=== PATIENT | female | born 1970 | race Caucasian/White ===

== ENCOUNTER 2020-02-28 10:38 | Outpatient (REF) | payer OTHER, SELFPAY | END 2020-02-28 10:39 | disposition home or self-care (01) | LOC: HO.LAB 10:38 | PROVIDERS: Visit Provider Internal Medicine | DX: Z20.828 Contact with and (suspected) exposure to other viral communicable diseases (principal) | CPT/HCPCS: C9803; U0003 ==

== ENCOUNTER 2020-06-10 16:34 | Outpatient (REF) | payer OTHER, SELFPAY ==
--- NOTE | ~2020-06-10 | MM_ITS ---
EXAMINATION: MM SCREENING DIGITAL BREAST TOMOSYNTHESIS, BILATERAL CLINICAL INFORMATION: Screening. Asymptomatic. The lifetime risk of breast cancer based on the Tyrer-Cuzick Model is 8%. COMPARISON: Mammography: 06/08/2019, 06/02/2018, 12/25/2016 TECHNIQUE: Digital breast tomosynthesis is performed in both the craniocaudal and mediolateral oblique views along with computer-aided detection (CAD). Synthesized 2D images are generated from the tomosynthesis. FINDINGS: There are scattered areas of fibroglandular density (ACR BI-RADS breast composition Category b). There are no significant masses, abnormal calcifications, or other abnormalities. The axilla and skin contours are unremarkable. MM/MM tomosynthesis screening BI IMPRESSION: No mammographic evidence of malignancy. ASSESSMENT: BI-RADS 1: Negative RECOMMENDATION: Routine annual mammography screening. This patient's information was entered into a reminder system with a target due date for their next mammogram.
== END 2020-06-10 16:35 | disposition home or self-care (01) ==
LOC: HO.MAMMO 16:34
PROVIDERS: Visit Provider Internal Medicine
DX: Z12.31 Encounter for screening mammogram for malignant neoplasm of breast (principal)
CPT/HCPCS: 77063; 77067

== ENCOUNTER 2020-08-13 07:25 | Outpatient (REF) | payer OTHER, SELFPAY ==
[2020-08-13 08:41] LABS: Basophils Percent Auto 0.6 % (0-2); Hemoglobin 13.3 g/dl (12.0-16.0); Imm Gran Abs Auto 0.02 X10*3/uL (0.00-0.03); Imm Gran Pct Auto 0.3 % (0.0-0.4); Lymphocytes Absolute Auto 2.2 X10*3/uL (1.2-4.9); MANUAL DIFF FLAG SCAN; Mean Corpuscular Hemoglobin 30.4 pg (27.0-33.0); PLT CLUMP 1; Red Cell Distribution Width 12.2 % (11.0-16.0); SCAN SMEAR FLAG 1
[2020-08-13 08:43] LABS: Hematocrit 41.4 % (37-47); Lymphocytes Percent Auto 30.8 % (20-40); Mean Corpuscular HGB Conc 32.1 g/dl (31.0-35.0); Mean Corpuscular Volume 94.7 fL (80-98); Monocytes Absolute Auto 0.5 X10*3/uL (0.1-1.2); Monocytes Percent Auto 6.9 % (2-11); Neutrophils Absolute Auto 4.3 X10*3/uL (2.0-8.3); Neutrophils Percent Auto 61.4 % (45-73); Red Blood Count 4.37 X10*6/uL (4.20-5.50)
[2020-08-13 09:03] LABS: Alanine Aminotransferase 51 U/L (0-31); Albumin Level 4.3 g/dL (3.5-5.0); Alkaline Phosphatase 90 U/L (39-117); Anion Gap 13 (12-20); Aspartate Amino Transferase 26 U/L (5-31); Bilirubin Total 0.7 mg/dL (0.0-1.0); Blood Urea Nitrogen 17 mg/dL (9-16); Calcium 9.5 mg/dL (8.4-10.2); Carbon Dioxide 27 mmol/L (22-29); Chloride 106 mmol/L (96-108); Cholesterol 168 mg/dL; Estimated Glomerular Filt Rate > 60; Glucose Random 100 mg/dL (60-115); HDL Cholesterol 72 mg/dL; LDL Cholesterol Calculated 86 mg/dl; Potassium 4.5 mmol/L (3.3-5.1); Sodium 141 mmol/L (135-145); Triglycerides 53 mg/dL
[2020-08-13 09:09] LABS: SLIDE REVIEW VERIFIED
== END 2020-08-13 07:26 | disposition home or self-care (01) ==
LOC: HO.LAB 07:25
PROVIDERS: PCP Internal Medicine; Visit Provider Internal Medicine
DX: Z00.00 Encounter for general adult medical examination without abnormal findings (principal); N95.0 Postmenopausal bleeding; D50.9 Iron deficiency anemia, unspecified
CPT/HCPCS: 36415; 80053; 80061; 85025

== ENCOUNTER 2020-08-28 10:43 | Outpatient (REF) | payer OTHER, SELFPAY ==
--- NOTE | ~2020-08-28 | US_ITS ---
EXAMINATION: ULTRASOUND PELVIS COMPLETE CLINICAL INFORMATION: Postmenopausal bleeding. COMPARISON: None TECHNIQUE: Transabdominal and transvaginal imaging of pelvis is performed. FINDINGS: The uterus is anteverted measuring 14.2 cm in length, 5.7 cm in AP and 8.6 cm in transverse dimension. The endometrial thickness is 0.39 cm. There are multiple hypoechoic uterine lesions. 1. Lesion largest in the right upper body of uterus measures 5.2 x 4.7 x 5.4 cm. Previously it measured 3.6 x 3.0 x 3.3 cm. 2. Lesion in the left upper body of uterus measures 2.8 x 2.1 x 2.2 cm. Previously it measured 2.8 x 2.2 x 2.4 cm. 3. Lesion in the posterior fundus of the uterus measures 3.5 x 2.8 x 2.9 cm. Previously it measured 2.3 x 3.3 x 3.0 cm. There are small anechoic nabothian cysts seen in the cervix. The right ovary measures 1.8 x 0.9 x 1.5 cm and volume 1.2 mL. There is a dominant follicle measuring 1.2 x 0.9 x 1.3 cm. Previously it measured 2.1 x 1.2 x 1.6 cm and volume 2.0 mL. The left ovary measures 4.5 x 3.1 x 3.4 cm. There is a simple anechoic cyst measuring 3.5 x 2.7 x 2.6 cm. Previously left ovary measured 2.8 x 1.4 x 2.0 cm and volume 4.2 mL. US/US pelvic and transvaginal IMPRESSION: Bilateral dominant ovarian follicular cysts as measured above. At least 3 fibroids in the uterus. Small nabothian cysts in the cervix.
== END 2020-08-28 10:44 | disposition home or self-care (01) ==
LOC: HO.HMGCX 10:43
PROVIDERS: PCP Internal Medicine; Visit Provider Internal Medicine
DX: N95.0 Postmenopausal bleeding (principal)
CPT/HCPCS: 76830; 76856

== ENCOUNTER 2020-12-26 10:18 | Outpatient (REF) | payer OTHER, SELFPAY | END 2020-12-26 10:19 | disposition home or self-care (01) | LOC: HO.LAB 10:18 | PROVIDERS: PCP Internal Medicine; Visit Provider Internal Medicine | DX: Z20.822 Contact with and (suspected) exposure to COVID-19 (principal) | CPT/HCPCS: C9803; U0003; U0005 ==

== ENCOUNTER 2021-04-02 11:25 | Outpatient (REF) | payer OTHER, SELFPAY ==
[2021-04-02 13:54] LABS: COVID-19 Test Negative (Negative)
== END 2021-04-02 11:26 | disposition home or self-care (01) ==
LOC: HO.LAB 11:25
PROVIDERS: Visit Provider Internal Medicine
DX: Z20.822 Contact with and (suspected) exposure to COVID-19 (principal)
CPT/HCPCS: 36415; 87635

== ENCOUNTER 2021-05-21 09:05 | Outpatient (REF) | payer OTHER, SELFPAY ==
[2021-05-21 10:21] LABS: Alanine Aminotransferase 21 U/L (0-31); Albumin Level 4.3 g/dL (3.5-5.0); Alkaline Phosphatase 79 U/L (39-117); Anion Gap 9 (12-20); Aspartate Amino Transferase 21 U/L (5-31); Bilirubin Total 1.1 mg/dL (0.0-1.0); Blood Urea Nitrogen 21 mg/dL (9-16); Calcium 9.5 mg/dL (8.4-10.2); Carbon Dioxide 27 mmol/L (22-29); Chloride 106 mmol/L (96-108); Estimated Glomerular Filt Rate > 60; Glucose Random 94 mg/dL (60-115); Potassium 4.4 mmol/L (3.3-5.1); Sodium 138 mmol/L (135-145); Total Protein 7.1 g/dL (6.5-8.0)
[2021-05-21 10:42] LABS: HBS Num1 4.76 mIU/mL (0-7.99); HBc Num1 0.17 S/CO (0.00-0.79); Hepatitis A Antibody IgM 0.18 Index (0-0.79); Hepatitis B Core Antibody Nonreactive (Nonreactive); ~HepC Num1 0.31 S/CO (0.00-0.79); ~Hepatitis A Antibody IgM Nonreactive (Nonreactive); ~Hepatitis B Surface Antibody NONREACTIVE (Nonreactive); ~Hepatitis C Antibody Nonreactive (Nonreactive)
[2021-05-21 10:58] LABS: HBsAGNum1 0.23 S/CO (0.00-0.99); Hepatitis B Surface Antigen Negative (Negative)
== END 2021-05-21 09:06 | disposition home or self-care (01) ==
LOC: HO.LAB 09:05
PROVIDERS: PCP Internal Medicine; Visit Provider Internal Medicine
DX: D50.9 Iron deficiency anemia, unspecified (principal); N95.0 Postmenopausal bleeding; R74.01 Elevation of levels of liver transaminase levels
CPT/HCPCS: 36415; 80053; 86704; 86706; 86709; 86803; 87340

== ENCOUNTER 2021-07-03 08:48 | Outpatient (REF) | payer OTHER, SELFPAY ==
[2021-07-03 09:21] LABS: MANUAL DIFF FLAG NO
[2021-07-03 09:27] LABS: Basophils Percent Auto 0.5 % (0-2); Hemoglobin 12.8 g/dl (12.0-16.0); Imm Gran Abs Auto 0.01 X10*3/uL (0.00-0.03); Imm Gran Pct Auto 0.2 % (0.0-0.4); Lymphocytes Absolute Auto 1.6 X10*3/uL (1.2-4.9); Lymphocytes Percent Auto 24.3 % (20-40); Mean Corpuscular Hemoglobin 30.6 pg (27.0-33.0); Mean Corpuscular Volume 95.7 fL (80.0-98.0); Mean Platelet Volume 9.8 fL (9.4-12.3); Monocytes Absolute Auto 0.5 X10*3/uL (0.1-1.2); Monocytes Percent Auto 7.2 % (2-11); Neutrophils Absolute Auto 4.3 x10*3/uL (2.0-8.3); Neutrophils Percent Auto 67.8 % (45-73); Platelet Count 233 X10*3/uL (160-400); Red Blood Count 4.18 X10*6/uL (4.20-5.50); Red Cell Distribution Width 13.1 % (11.0-16.0); White Blood Count 6.4 X10*3/uL (4.8-10.8)
[2021-07-03 10:19] LABS: Cholesterol 174 mg/dL; HDL Cholesterol 66 mg/dL; LDL Cholesterol Calculated 97 mg/dl; Triglycerides 59 mg/dL
[2021-07-03 10:32] LABS: Thyroid Stimulating Hormone 3.42 uIU/mL (0.32-4.0)
== END 2021-07-03 08:49 | disposition home or self-care (01) ==
LOC: HO.LAB 08:48
PROVIDERS: PCP Internal Medicine; Visit Provider Internal Medicine
DX: I10 Essential (primary) hypertension (principal)
CPT/HCPCS: 36415; 80061; 84443; 85025

== ENCOUNTER 2021-07-09 16:30 | Outpatient (REF) | payer OTHER, SELFPAY ==
--- NOTE | ~2021-07-09 | MM_ITS ---
EXAMINATION: MM SCREENING DIGITAL BREAST TOMOSYNTHESIS, BILATERAL CLINICAL INFORMATION: Screening. Asymptomatic. The lifetime risk of breast cancer based on the Tyrer-Cuzick Model is 7%. COMPARISON: Mammography: 06/10/2020, 06/08/2019, 06/02/2018 TECHNIQUE: Digital breast tomosynthesis is performed in both the craniocaudal and mediolateral oblique views along with computer-aided detection (CAD). Synthesized 2D images are generated from the tomosynthesis. FINDINGS: There are scattered areas of fibroglandular density (ACR BI-RADS breast composition Category b). There are no significant masses, abnormal calcifications, or other abnormalities. Parenchymal pattern is similar to prior studies. There is no developing density or architectural abnormality. The axilla and skin contours are unremarkable. No significant changes. MM/MM tomosynthesis screening BI IMPRESSION: No mammographic evidence of malignancy. ASSESSMENT: BI-RADS 1: Negative RECOMMENDATION: Routine annual mammography screening. This patient's information was entered into a reminder system with a target due date for their next mammogram.
== END 2021-07-09 16:31 | disposition home or self-care (01) ==
LOC: HO.MAMMO 16:30
PROVIDERS: PCP Internal Medicine; Visit Provider Internal Medicine
DX: Z12.31 Encounter for screening mammogram for malignant neoplasm of breast (principal)
CPT/HCPCS: 77063; 77067

== ENCOUNTER 2021-08-07 09:37 | Outpatient (REF) | payer OTHER, SELFPAY ==
[2021-08-09 01:52] LABS: Follicle Stimulating Hormone 51.9 mIU/mL
== END 2021-08-07 09:38 | disposition home or self-care (01) ==
LOC: HO.LAB 09:37
PROVIDERS: PCP Internal Medicine; Visit Provider Obstetrics & Gynecology
DX: N95.0 Postmenopausal bleeding (principal)
CPT/HCPCS: 36415; 83001

== ENCOUNTER 2021-11-05 16:31 | Outpatient (REF) | payer OTHER, SELFPAY ==
[2021-11-12 21:48] LABS: Estradiol Free 0.73 pg/mL; Estradiol, Ultrasensitive 50 pg/mL
== END 2021-11-05 16:32 | disposition home or self-care (01) ==
LOC: HO.LAB 16:31
PROVIDERS: PCP Internal Medicine; Visit Provider Obstetrics & Gynecology
DX: N95.0 Postmenopausal bleeding (principal)
CPT/HCPCS: 36415; 82670; 82681

== ENCOUNTER 2022-08-15 07:43 | Outpatient (REF) | payer OTHER, SELFPAY ==
--- NOTE | ~2022-08-15 | MM_ITS ---
EXAMINATION: MM SCREENING DIGITAL BREAST TOMOSYNTHESIS, BILATERAL CLINICAL INFORMATION: Screening. Asymptomatic. The lifetime risk of breast cancer based on the Tyrer-Cuzick Model is 8%. COMPARISON: Mammography: 07/09/2021, 06/10/2020, 06/08/2019 TECHNIQUE: Digital breast tomosynthesis is performed in both the craniocaudal and mediolateral oblique views along with computer-aided detection (CAD). Synthesized 2D images are generated from the tomosynthesis. FINDINGS: There are scattered areas of fibroglandular density (ACR BI-RADS breast composition Category b). There are no significant masses, abnormal calcifications, or other abnormalities. No architectural abnormality or developing density or significant change from prior studies. The axilla and skin contours are unremarkable. MM/MM tomosynthesis screening BI IMPRESSION: No mammographic evidence of malignancy. ASSESSMENT: BI-RADS 1: Negative RECOMMENDATION: Routine annual mammography screening. This patient's information was entered into a reminder system with a target due date for their next mammogram.
[2022-08-15 09:03] LABS: Basophils Absolute Auto 0.1 X10*3/uL (0.0-0.2); Eosinophils Absolute Auto 0.2 X10*3/uL (0.0-0.4); Eosinophils Percent Auto 3.1 % (0-4); Hematocrit 42.6 % (37.0-47.0); Hemoglobin 13.7 g/dl (12.0-16.0); Imm Gran Abs Auto 0.02 X10*3/uL (0.00-0.03); Imm Gran Pct Auto 0.3 % (0.0-0.4); Lymphocytes Absolute Auto 2.1 X10*3/uL (1.2-4.9); MANUAL DIFF FLAG SCAN; Mean Corpuscular HGB Conc 32.2 g/dl (31.0-35.0); Mean Corpuscular Volume 93.4 fL (80.0-98.0); Monocytes Absolute Auto 0.4 X10*3/uL (0.1-1.2); Neutrophils Absolute Auto 3.1 x10*3/uL (2.0-8.3); Neutrophils Percent Auto 53.6 % (45-73); PLT CLUMP 1; Red Blood Count 4.56 X10*6/uL (4.20-5.50); Red Cell Distribution Width 12.3 % (11.0-16.0); SCAN SMEAR FLAG 1
[2022-08-15 09:04] LABS: White Blood Count 5.9 X10*3/uL (4.8-10.8)
[2022-08-15 09:34] LABS: Alanine Aminotransferase 20 U/L (0-31); Albumin Level 4.4 g/dL (3.5-5.0); Alkaline Phosphatase 103 U/L (39-117); Anion Gap 13 (12-20); Aspartate Amino Transferase 17 U/L (5-31); Bilirubin Total 0.7 mg/dL (0.0-1.0); Blood Urea Nitrogen 19 mg/dL (9-16); Calcium 9.7 mg/dL (8.4-10.2); Carbon Dioxide 25 mmol/L (22-29); Chloride 109 mmol/L (96-108); Cholesterol 184 mg/dL; Estimated Glomerular Filt Rate > 60; Glucose Random 103 mg/dL (60-115); HDL Cholesterol 72 mg/dL; LDL Cholesterol Calculated 101 mg/dl; Potassium 4.4 mmol/L (3.3-5.1); Sodium 143 mmol/L (135-145); Triglycerides 56 mg/dL
[2022-08-15 10:09] LABS: SLIDE REVIEW VERIFIED
[2022-08-15 12:24] LABS: CT PCR NOT DETECTED (Not Detect.); NG PCR NOT DETECTED (Not Detect.)
== END 2022-08-15 07:44 | disposition home or self-care (01) ==
LOC: HO.MAMMO 07:43
PROVIDERS: PCP Internal Medicine; Visit Provider Internal Medicine
DX: Z00.00 Encounter for general adult medical examination without abnormal findings (principal); Z12.31 Encounter for screening mammogram for malignant neoplasm of breast; D25.9 Leiomyoma of uterus, unspecified; F40.243 Fear of flying; R87.612 Low grade squamous intraepithelial lesion on cytologic smear of cervix (LGSIL); Z20.2 Contact with and (suspected) exposure to infections with a predominantly sexual mode of transmission
CPT/HCPCS: 0353U; 77063; 77067; 80053; 80061; 85025

== ENCOUNTER 2022-08-21 15:04 | Outpatient (REF) | payer OTHER, SELFPAY ==
--- NOTE | ~2022-08-21 | US_ITS ---
EXAMINATION: US PELVIS CLINICAL INFORMATION: Pelvic pain; fibroids; the last menstrual period is not specified. COMPARISON: None available. TECHNIQUE: Transabdominal and transvaginal imaging was performed. FINDINGS: The uterus is of normal size and echogenicity, measuring 8.4 x 5.5 x 7.4 cm. The uterus is anteverted and anteflexed. The endometrial stripe is obscured by fibroids. A nabothian cyst is seen within the cervix FIBROIDS: There are 3 fibroids seen. 1. Location: Rightward cornu. Size: 5.6 x 4.2 x 5.5 cm. Prior: 5.2 x 4.7 x 5.4 cm. Fibroid characteristics: Heterogeneous echotexture. 2. Location: Posterior fundus, subserosal. Size: 2.5 x 1.7 x 2.4 cm. Prior: 3.5 x 2.8 x 2.9 cm. Fibroid characteristics: Heterogeneously hypoechoic. 3. Location: Upper leftward body, myometrial. Size: 1.9 x 2.4 x 1.6 cm. Prior: 2.8 x 2.1 x 2.2 cm. Fibroid characteristics: Heterogeneous echotexture. Both ovaries are nonvisualized. There is no pelvic free fluid. No adnexal mass is seen. US/US pelvic and transvaginal IMPRESSION: 1. There is uterine fibroid disease. 2. A nabothian cyst is seen within the cervix. 3. The ovaries are nonvisualized.
== END 2022-08-21 15:05 | disposition home or self-care (01) ==
LOC: HO.US 15:04
PROVIDERS: PCP Internal Medicine; Visit Provider Obstetrics & Gynecology
DX: R10.2 Pelvic and perineal pain (principal); D25.1 Intramural leiomyoma of uterus
CPT/HCPCS: 76830; 76856

== ENCOUNTER 2023-03-04 12:27 | Outpatient (AMB) | payer OTHER, SELFPAY ==
--- NOTE | 2023-03-04 13:51 | MHC.OFFWIV ---
Intake Vital Signs 03/04/23 13:54 Height 5 ft 4 in Weight 133 lb BMI 22.8 BP 110/60 Blood Pressure Location Rt brachial Position Sitting Pulse 89 Pulse Source Pulse Oximeter Temp 97.7 F Temp Source Temporal Artery Scan Pulse Oximetry (%) 99 Oxygen Delivery Method Room Air Intake Visit Reasons: EP sinus pain stuffy nose cough [id number] Intake Note: pt is here today for sinus pain stuffy nose and cough started wednesday Allergies No Known Allergies Allergy (Verified 03/04/23 13:53) Do you need a note to return to daycare/school/sports/work: Yes HPI HPI Comments History of Present Illness Details This is a 52-year-old female with no stated past medical history presenting for evaluation of bilateral ear pain, facial pain, fevers up to 101? and nasal congestion that started on Wednesday. Patient states she has taken to test for COVID-19 at home which were both negative. Patient has not taken any medication for treatment of her discomfort or her fevers. She also denies any sick contacts. Review of Systems Const All systems reviewed & are unremarkable except as noted in HPI and below Denies body aches, Denies chills, Reports fever(s) and Denies night sweats Eyes Reports no additional complaints and Denies itchy eyes ENT Reports otalgia, Reports facial pain and Reports nasal congestion Card Reports no additional complaints Resp Reports no additional complaints Musc Reports no additional complaints Neuro Reports no additional complaints Psych Reports no additional complaints Aller/Immun Denies itchy eyes Physical Exam Vital Signs: Last Vital Signs Temp 97.7 F 03/04/23 13:54 Pulse 89 03/04/23 13:54 BP 110/60 03/04/23 13:54 Pulse Ox 99 03/04/23 13:54 Oxygen Delivery Method Room Air 03/04/23 13:54 BMI result Body Mass Index 22.8 Const General: cooperative, healthy appearing, comfortable, no acute distress, alert and awake; No ill appearing Nutritional Appearance: average body habitus Orientation/consciousness: patient oriented x3 Limitations: no limitations HEENT Head: Yes normal to inspection Ears: hearing grossly normal bilaterally, external ears normal, TM normal on the right (TM bulging and erythematous), TM normal on the left and EAC's normal General nose exam: Normal external nose present Face and sinus: Yes normal facial exam and Yes sinuses nontender Mouth: Normal oral and palatal mucosa present Teeth and gingiva: dentition normal Throat: Yes posterior oropharynx normal and No postnasal drainage Eyes Eyelids: Yes eyelids normal Conjunctivae: conjunctivae normal Sclerae: sclerae normal Corneas: corneas normal Pupils: Equal, round and reactive pupils present EOM: EOMs intact bilaterally Neck Lymphatic: no lymphadenopathy noted Resp Effort & Inspection: normal respiratory effort and able to speak in complete sentences Auscultation: clear to auscultation bilaterally Cardio Rate: regular rate Rhythm: regular rhythm Skin General skin exam: no rashes or lesions noted Neuro General: patient oriented x3 Cranial nerves: Yes Equal, round and reactive pupils present Psych Appearance: grossly normal Mental Status: mental status grossly normal Insight: Good insight present (Psych) Judgement: Good judgement present (Psych) Assessment & Plan Assessment & Plan (1) Otitis media: Code(s): H66.90 - Otitis media, unspecified, unspecified ear Qualifiers: Chronicity: acute Otitis media type: unspecified Qualified Code(s): H66.90 - Otitis media, unspecified, unspecified ear Plan Amoxicillin TID. x7 days; ibuprofen or Tylenol as needed for discomfort. Medications: New amoxicillin 500 mg PO TID 21 caps 0RF Coding Level of Care Code New Pt Level 3 (26620) Diagnoses Acute otitis media, unspecified otitis media type H66.90 Chronicity: acute Otitis media type: unspecified Time Spent (min) 20
[2023-03-04 13:54] VITALS: BP 110/60; PULSE 89; TEMP 36.5; O2SAT 99; BMI 22.8
== END 2023-03-04 14:47 | disposition home or self-care (01) ==
PROVIDERS: PCP Internal Medicine; Visit Provider Physician Assistant
DX: H66.90 Otitis media, unspecified, unspecified ear (principal)
CPT/HCPCS: 99203

== ENCOUNTER 2023-07-19 08:21 | Outpatient (REF) | payer OTHER, SELFPAY ==
[2023-07-19 08:52] LABS: MANUAL DIFF FLAG NO
[2023-07-19 09:12] LABS: Basophils Absolute Auto 0.1 X10*3/uL (0.0-0.2); Basophils Percent Auto 1.1 % (0-2); Eosinophils Absolute Auto 0.2 X10*3/uL (0.0-0.4); Hematocrit 41.2 % (37.0-47.0); Hemoglobin 13.3 g/dl (12.0-16.0); Imm Gran Abs Auto 0.01 X10*3/uL (0.00-0.03); Imm Gran Pct Auto 0.2 % (0.0-0.4); Lymphocytes Absolute Auto 1.5 X10*3/uL (1.2-4.9); Lymphocytes Percent Auto 27.3 % (20-40); Mean Corpuscular HGB Conc 32.3 g/dl (31.0-35.0); Mean Corpuscular Hemoglobin 30.2 pg (27.0-33.0); Mean Corpuscular Volume 93.6 fL (80.0-98.0); Monocytes Absolute Auto 0.3 X10*3/uL (0.1-1.2); Monocytes Percent Auto 5.2 % (2-11); Neutrophils Absolute Auto 3.6 x10*3/uL (2.0-8.3); Neutrophils Percent Auto 63.2 % (45-73); Platelet Count 155 X10*3/uL (160-400); Red Cell Distribution Width 13.1 % (11.0-16.0); White Blood Count 5.6 X10*3/uL (4.8-10.8)
[2023-07-19 10:02] LABS: Alanine Aminotransferase 24 U/L (0-31); Albumin Level 4.4 g/dL (3.5-5.0); Alkaline Phosphatase 99 U/L (39-117); Anion Gap 10 (12-20); Aspartate Amino Transferase 21 U/L (5-31); Bilirubin Total 0.6 mg/dL (0.0-1.0); Blood Urea Nitrogen 20 mg/dL (9-16); Calcium 9.6 mg/dL (8.4-10.2); Carbon Dioxide 26 mmol/L (22-29); Chloride 110 mmol/L (96-108); Estimated Glomerular Filt Rate > 60; Glucose Random 98 mg/dL (60-115); Potassium 4.4 mmol/L (3.3-5.1); Sodium 142 mmol/L (135-145); Total Protein 7.2 g/dL (6.5-8.0)
[2023-07-19 10:18] LABS: Ferritin 97 ng/mL (10-250)
[2023-07-19 10:34] LABS: Vitamin B12 349 pg/mL (200-900)
== END 2023-07-19 08:22 | disposition home or self-care (01) ==
LOC: HO.LAB 08:21
PROVIDERS: PCP Internal Medicine; Visit Provider Internal Medicine
DX: Z00.00 Encounter for general adult medical examination without abnormal findings (principal); D50.9 Iron deficiency anemia, unspecified; D25.9 Leiomyoma of uterus, unspecified
CPT/HCPCS: 36415; 80053; 82607; 82728; 85025

== ENCOUNTER 2023-11-17 08:04 | Outpatient (REF) | payer OTHER, SELFPAY ==
--- NOTE | ~2023-11-17 | MM_ITS ---
EXAMINATION: MM SCREENING DIGITAL BREAST TOMOSYNTHESIS, most a CLINICAL INFORMATION: Screening. Asymptomatic. COMPARISON: Mammography: This study is compared with prior exams dating back to 2010 TECHNIQUE: Digital breast tomosynthesis is performed in both the craniocaudal and mediolateral oblique views along with computer-aided detection (CAD). Synthesized 2D images are generated from the tomosynthesis. FINDINGS: There are scattered areas of fibroglandular density (ACR BI-RADS breast composition Category b). There are no significant masses, abnormal calcifications, or other abnormalities. MM/MM tomosynthesis screening BI IMPRESSION: No mammographic evidence of malignancy. ASSESSMENT: BI-RADS BI-RADS 1 - Negative RECOMMENDATION: Routine annual mammography screening. 1 year F/U This examination should not preclude the clinical evaluation of a suspicious palpable abnormality. This patient's information was entered into a reminder system with a target due date for their next mammogram. Electronically signed by: Jessenia Alex MD 12/15/2023 08:40 AM EDT
== END 2023-11-17 08:05 | disposition home or self-care (01) ==
LOC: HO.MAMMO 08:04
PROVIDERS: PCP Internal Medicine; Visit Provider Internal Medicine
DX: Z12.31 Encounter for screening mammogram for malignant neoplasm of breast (principal)
CPT/HCPCS: 77063; 77067

== ENCOUNTER 2024-06-21 07:44 | Outpatient (REF) | payer OTHER, SELFPAY ==
[2024-06-21 07:59] LABS: MANUAL DIFF FLAG NO
[2024-06-21 08:14] LABS: Basophils Absolute Auto 0.1 X10*3/uL (0.0-0.2); Basophils Percent Auto 0.8 % (0-2); Eosinophils Absolute Auto 0.2 X10*3/uL (0.0-0.4); Eosinophils Percent Auto 2.5 % (0-4); Hematocrit 41.9 % (37.0-47.0); Hemoglobin 13.5 g/dl (12.0-16.0); Imm Gran Abs Auto 0.02 X10*3/uL (0.00-0.03); Imm Gran Pct Auto 0.3 % (0.0-0.4); Lymphocytes Absolute Auto 2.5 X10*3/uL (1.2-4.9); Lymphocytes Percent Auto 39.3 % (20-40); Mean Corpuscular HGB Conc 32.2 g/dl (31.0-35.0); Mean Corpuscular Hemoglobin 29.9 pg (27.0-33.0); Mean Corpuscular Volume 92.7 fL (80.0-98.0); Mean Platelet Volume 10.1 fL (9.4-12.3); Monocytes Absolute Auto 0.4 X10*3/uL (0.1-1.2); Monocytes Percent Auto 5.6 % (2-11); Neutrophils Absolute Auto 3.3 x10*3/uL (2.0-8.3); Neutrophils Percent Auto 51.5 % (45-73); Platelet Count 227 X10*3/uL (160-400); Red Blood Count 4.52 X10*6/uL (4.20-5.50); Red Cell Distribution Width 12.6 % (11.0-16.0); White Blood Count 6.4 X10*3/uL (4.8-10.8)
[2024-06-21 09:08] LABS: Alanine Aminotransferase 32 U/L (0-31); Albumin Level 4.2 g/dL (3.5-5.0); Alkaline Phosphatase 104 U/L (39-117); Anion Gap 10 (12-20); Aspartate Amino Transferase 24 U/L (5-31); Bilirubin Total 0.6 mg/dL (0.0-1.0); Blood Urea Nitrogen 22 mg/dL (9-16); Calcium 9.4 mg/dL (8.4-10.2); Carbon Dioxide 26 mmol/L (22-29); Chloride 113 mmol/L (96-108); Cholesterol 169 mg/dL (<200); Estimated Glomerular Filt Rate > 60; Glucose Random 94 mg/dL (60-115); HDL Cholesterol 71 mg/dL (>40); LDL Cholesterol Calculated 88 mg/dL (<100); Potassium 4.1 mmol/L (3.3-5.1); Sodium 145 mmol/L (135-145); Total Protein 7.3 g/dL (6.5-8.0); Triglycerides 50 mg/dL (<150)
== END 2024-06-21 07:45 | disposition home or self-care (01) ==
LOC: HO.LAB 07:44
PROVIDERS: PCP Internal Medicine; Visit Provider Internal Medicine
DX: D25.9 Leiomyoma of uterus, unspecified (principal); D69.6 Thrombocytopenia, unspecified; G44.219 Episodic tension-type headache, not intractable; R19.6 Halitosis; R20.8 Other disturbances of skin sensation; R25.1 Tremor, unspecified
CPT/HCPCS: 36415; 80053; 80061; 85025

== ENCOUNTER 2024-07-04 16:37 | Outpatient (REF) | payer OTHER, SELFPAY | END 2024-07-04 16:38 | disposition home or self-care (01) | LOC: HO.LAB 16:37 | PROVIDERS: PCP Internal Medicine; Visit Provider Psychiatry & Neurology Neurology | DX: Z13.89 Encounter for screening for other disorder (principal) ==

== ENCOUNTER 2024-07-05 16:52 | Outpatient (REF) | payer OTHER, SELFPAY | END 2024-07-05 16:53 | disposition home or self-care (01) | LOC: HO.LAB 16:52 | PROVIDERS: PCP Internal Medicine; Visit Provider Psychiatry & Neurology Neurology | DX: G30.9 Alzheimer's disease, unspecified (principal) | CPT/HCPCS: 82233; 82234; 84393 ==

== ENCOUNTER 2024-11-15 15:46 | Outpatient (REF) | payer OTHER, SELFPAY ==
[2024-11-16 09:19] LABS: Lyme Abs Screen <0.90 index
== END 2024-11-15 15:47 | disposition home or self-care (01) ==
LOC: HO.LAB 15:46
PROVIDERS: PCP Internal Medicine; Referring Provider Internal Medicine; Visit Provider Psychiatry & Neurology Neurology
DX: G31.84 Mild cognitive impairment of uncertain or unknown etiology (principal); R90.82 White matter disease, unspecified; Z01.84 Encounter for antibody response examination
CPT/HCPCS: 36415; 85652; 86617; 86618

== ENCOUNTER 2024-11-15 15:46 | Outpatient (AMB) | payer OTHER, SELFPAY ==
--- NOTE | 2024-11-15 15:43 | MHC.OFFVIS ---
Vital Signs 11/15/24 15:52 Weight 130 lb BP 110/78 Blood Pressure Location Rt brachial Position Standing Pulse 95 Intake Visit Reasons: 4 month Allergies No Known Allergies Allergy (Verified 03/04/23 13:53) HPI Comments Details: 54 yo RH woman with amnestic mild cognitive impairment. She was getting nervous and anxious and constatly thinking about stuff. She is presenting with memory changes and recent brain imaging findings. She reports difficulties with memory, specifically recalling names and numbers, and is concerned because of her family history of Alzheimer's disease. These memory concerns have been gradual but noticeable. An MRI of the brain showed nonspecific white matter changes and a benign-appearing 5 mm pineal cyst. An Alzheimer's-specific test returned negative. She also has fluctuating blood pressure, typically low, potentially explaining the white matter changes. She denies a personal history of hypertension. The patient is significantly worried about these findings due to a reported familial history of Alzheimer's but was informed that the imaging findings are common with age-related changes without progressive symptoms. FORMERLY [facility], [facility] Medical History (Updated 11/15/24 @ 15:59 by Marcella Israel MD) MCI (mild cognitive impairment) Review of Systems Const Details: - Neurological: Reports memory changes. Denies headaches, dizziness, or loss of consciousness. - Sleep: Reports improvement in sleep quality. - Cardiovascular: Denies past issues with blood pressure but notes fluctuation. - Psychological: Reports stable mood, although acknowledges family might perceive differently. Physical Exam Neuro Other: Mental Status: Alert and oriented to person, place, and time. Normal attention. Normal spontaneous speech, fluency, and comprehension. No obvious issues with mood and memory. Affect is appropriate. Cranial Nerves: CN II: Visual cabrera full to confrontation, visual acuity intact. CN III, IV, : Pupils equal, round, reactive to light and accommodation. Extraocular movements are normal. CN V: Facial sensation is normal. CN VII: Facial movements symmetrical. CN VIII: Hearing intact to bedside conversation is normal. CN IX, X: Palate elevates symmetrically. CN XI: Shoulder shrug and head turn symmetrical. CN XII: Tongue midline without atrophy or fasciculations. Motor: Bulk and tone normal in all extremities. No significant muscle weakness in arms and legs. No drift. Reflexes: Deep tendon reflexes 2+ and symmetric. Plantar response down-going bilaterally. Coordination: [id number]-vg-[id number] and uiiu-sq-[id number] testing normal. No dysmetria. Gait and Station: No obvious gait abnormality. No ataxia or instability. Extrapyramidal: Full facial expressions and blinking. No rigidity. Movements are appropriate with no tremor or abnormality. Speech: Normal; no dysarthria or tremor. Assessment & Plan Assessment & Plan (1) MCI (mild cognitive impairment): Comment: MRI brain WO at [facility] in Jun 2024: Minimal MVD Abeta 42/40 in 2024: Low likelihood of AD Code(s): G31.84 - Mild cognitive impairment of uncertain or unknown etiology Category: Medical (2) White matter disease: Code(s): R90.82 - White matter disease, unspecified Category: Medical Plan Impression: a: MCI with MRI brain b: Non specific white matter change in brain w/o h/o HTN Rec; a: Will repeat MRI in Maribel2025 b: Lyme serology, ESR Orders: Orders Lyme IgG/IgM w/reflex to WB Today G31.84 - Mild cognitive impairment of uncertain or unknown etiology, R90.82 - White matter disease, unspecified Erythrocyte Sedimentation Rate Today G31.84 - Mild cognitive impairment of uncertain or unknown etiology, R90.82 - White matter disease, unspecified Coding Level of Care Code Est Pt Level 5 (48819) Diagnoses MCI (mild cognitive impairment) G31.84 White matter disease R90.82
[2024-11-15 15:52] VITALS: BP 110/78; PULSE 95
== END 2024-11-15 16:05 | disposition home or self-care (01) ==
LOC: HO.HSM 15:47
PROVIDERS: PCP Internal Medicine; Referring Provider Internal Medicine; Visit Provider Psychiatry & Neurology Neurology
DX: G31.84 Mild cognitive impairment of uncertain or unknown etiology (principal); R90.82 White matter disease, unspecified
CPT/HCPCS: 99214

== ENCOUNTER → 2024-11-29 08:15 | Outpatient (BNV) | payer OTHER, SELFPAY | PROVIDERS: PCP Internal Medicine; Visit Provider Radiology Body Imaging | DX: Z12.31 Encounter for screening mammogram for malignant neoplasm of breast (principal) | CPT/HCPCS: 77063; 77067 ==

== ENCOUNTER 2024-11-29 08:20 | Outpatient (REF) | payer OTHER, SELFPAY ==
--- OUTSIDE RECORDS SUMMARY | 2024-11-29 08:40 | XMS_ITS | Encounter Summary ---
Author Organization [facility] Address [address] [place] [address] Care Team Providers Care Ballistic Expert Name Role Phone Physician, Pcp Unknown Primary Care Provider [place] vailable Encounter Details Date Type Department Care Team (Late st Contact Info) Description 07/19/2024 Lab Requisition [facility] Main Lab [address] [facility] [place] [address] Ada Patel MD [address] [place] [address] [place] [address] Other contact with and (suspected) exposures hazardous to health Social History Tobacco Use Types Packs/Day Years Used Date Smoking Tobacco: Never Assessed Comments Unknown Sex and Gender Information Value Date Recorded Sex Assigned at Not on file Legal Sex Female 1:00 AM EST Gender Identity Not on file Sexual Orientation Not on file documented as of this encounter Plan of Treatment Not on file documented as of this encounter Procedures Procedure Name Priority Date/Time Associated Diagnosis Comments CHLAMYDIA TRACHOMATIS AND NEISSERIA GONORRHOEAE BY TMA, THINPREP Routine 07/13/2024 12:00 AM EDT Other contact with and (suspected) exposures hazardous to health HPV WITH REFLEX GENOTYPE Routine 07/13/2024 12:00 AM EDT Other contact with and (suspected) exposures hazardous to health TRICHOMONAS VAGINALIS PCR Routine 07/13/2024 12:00 AM EDT Other contact with and (suspected) exposures hazardous to health PAP SMEAR Routine 07/13/2024 12:00 AM EDT Other contact with and (suspected) exposures hazardous to health documented in this encounter Results * HPV with reflex genotype (07/13/2024 12:00 AM EDT) HPV Negative Negative LAB MICROBIOLOGY METHOD 07/20/2024 1:42 PM EDT [facility] Brushing/Spatula Cervix uteri structure / Unknown 07/13/2024 07/19/2024 6:37 AM EDT us Ada Patel MD LAB MOLECULAR DIAGNOSTICS ORD ERABLES Final Result Performing Organization Address City/[facility]/ZIP Co de Phone Number [facility] [address] [place] [address], [place] [phone] * Trichomonas vaginalis molecular study (07/13/2024 12:00 AM EDT) [facility] [address] Trichomonas vaginalis Negative Negative LAB MICROBIOLOGY METHOD 07/20/2024 12:30 PM EDT [facility] Brushing/Spatula Cervix uteri structure / Unknown 07/13/2024 07/19/2024 6:37 AM EDT us Ada Patel MD LAB BLOOD ORDERABLES Final Re sult Performing Organization Address City/[facility]/ZIP Co de Phone Number [facility] [address] [place] [address], [place] [phone] * Chlamydia trachomatis and neisseria gonorrhoeae by tma, thinprep (07/13/2024 12:00 AM EDT) [facility] [address] N. gonorrhoeae, RNA Probe Negative Negative LAB MICROBIOLOGY METHOD 07/20/2024 12:05 PM EDT [facility] Chlamydia, RNA Probe Negative Negative LAB MICROBIOLOGY METHOD 07/20/2024 12:05 PM EDT [facility] Brushing/Spatula Cervix uteri structure / Unknown 07/13/2024 07/19/2024 6:37 AM EDT us Ada Patel MD LAB CYTOLOGY ORDERABLES Final Result Performing Organization Address City/[facility]/ZIP Co de Phone Number [facility] [address] [place] [address], [place] [phone] * Pap smear (07/13/2024 12:00 AM EDT) Interpretation Negative for intraepithelial lesion or malignancy 07/20/2024 3:09 PM EDT [facility] General Categorization Negative 07/20/2024 3:09 PM EDT [facility] Specimen Adequacy Satisfactory for evaluation, endocervical/tatum sformation zone component present 07/20/2024 3:09 PM EDT [facility] Pap Methodology Liquid Based Pap Test 07/20/2024 3:09 PM EDT [facility] Disclaimer The Pap test is a screening test which carries an inherent false negative rate. These test results should be correlated with the patient's clinical findings and history. This Pap test was processed using an automated screening system. Technical cytopathology services provided by [facility], at [address] [place] [address] (CLIA # [id number]/Juan Solis MD, [facility].) 07/20/2024 3:09 PM EDT [facility] Console Pap Interpretation Reported 07/20/2024 3:09 PM EDT [facility] Brushing/Spatula 07/13/2024 07/20/19 6:37 AM EDT Ada Patel MD LAB CYTOLOGY ORDERABLES Final Result [facility] [address] [place] [address], [place] [phone] documented in this encounter Visit Diagnoses Diagnosis Other contact with and (suspected) exposures hazardous to health documented in this encounter Care Teams Ballistic Expert Relationship Specialty Start Date End Date Physician, Pcp Unknown PCP - General 07/19/24 documented as of this encounter
--- OUTSIDE RECORDS SUMMARY | 2024-11-29 08:40 | XMS_ITS | Clinical Summary ---
Author Organization [address] [facility] Address [address] [place] [address] Phone Care Team Providers Care Programming Engineer Name Role Phone Physician, Pcp Unknown Primary Care Provider [place] vailable Social History Tobacco Use Types Packs/Day Years Used Date Smoking Tobacco: Never Assessed Comments Unknown Sex and Gender Information Value Date Recorded Sex Assigned at Not on file Legal Sex Female 1:00 AM EST Gender Identity Not on file Sexual Orientation Not on file Plan of Treatment Health Maintenance Due Date Last Done Comments Breast Cancer Screening 1970 DTaP,Tdap,and Td Vaccines (1 - Tdap) 1989 Hepatitis B Vaccines (1 of 3 - 19+ 3-dose series) 1989 Pneumococcal Vaccine: 50+ Ye ars (1 of 1 - PCV) 2020 Zoster Vaccines (1 of 2) 2020 Colorectal Cancer Screening: Colonoscopy 03/08/2022 HIV Screening 03/08/2022 Hepatitis C Screening 03/08/2022 Social Influencers of Health Screening 03/08/2022 COVID-19 Vaccine (1 - 2023-2 5 season) 2023 Depression Screening 04/05/2024 Influenza Vaccine (#1) 2024 Cervical Cancer Screening: HPV 07/13/2029 07/13/2024 HIB Vaccines Aged Out No longer eligi ble based on patient's age to complete this topic HPV Vaccines Aged Out No longer eligi ble based on patient's age to complete this topic Hepatitis A Vaccines Aged Out No long er eligible based on patient's age to complete this topic IPV Vaccines Aged Out No longer eligi ble based on patient's age to complete this topic MMR Vaccines Aged Out No longer eligi ble based on patient's age to complete this topic Meningococcal ACWY Vaccine Aged Out N o longer eligible based on patient's age to complete this topic Meningococcal B Vaccine Aged Out No l onger eligible based on patient's age to complete this topic RSV Immunization Patients Un manpreet 20 months Aged Out No longer eligible b ased on patient's age to complete this topic Varicella Vaccines Aged Out No longer eligible based on patient's age to complete this topic Procedures Procedure Name Priority Date/Time Associated Diagnosis Comments HPV WITH REFLEX GENOTYPE Routine 07/13/2024 12:00 AM EDT Other contact with and (suspected) exposures hazardous to health from Last 3 Months or Most Recently Relevant to Health Maintenance Results * HPV with reflex genotype (07/13/2024 12:00 AM EDT) HPV Negative Negative LAB MICROBIOLOGY METHOD 07/20/2024 1:42 PM EDT [facility] Brushing/Spatula Cervix uteri structure / Unknown 07/13/2024 07/19/2024 6:37 AM EDT us Ada Patel MD LAB MOLECULAR DIAGNOSTICS ORD ERABLES Final Result [facility] [address] [place] [address], from Last 3 Months or Most Recently Relevant to Health Maintenance Insurance [facility] Care Teams Programming Engineer Relationship Specialty Start Date End Date Physician, Pcp Unknown PCP - General 07/19/24
== END 2024-11-29 08:21 | disposition home or self-care (01) ==
LOC: HO.MAMMO 08:20
PROVIDERS: PCP Internal Medicine; Visit Provider Internal Medicine
DX: Z12.31 Encounter for screening mammogram for malignant neoplasm of breast (principal)
CPT/HCPCS: 77063; 77067